=== PATIENT | female | born 1970 | race Caucasian/White ===

== ENCOUNTER → 2017-02-01 | Outpatient (CLI) | payer BC ==
--- NOTE | 2017-02-01 17:29 | RAD ---
Two-view abdomen radiographs 02/01/2017 Clinical history: Abdominal pain and diarrhea for years. 2 AP erect and 2 AP supine digital radiographs of the abdomen/pelvis were obtained. The abdominal bowel gas pattern is nonobstructive. No free air is seen. Lung bases are clear. An IUD overlies the lower pelvis. No radiopaque calculus is definitely noted. Minimal S shaped curvature of the thoracolumbar spine is seen. Impression: Nonobstructive bowel gas pattern.
== END | disposition home or self-care (01) ==
LOC: DXRADRC 11:41
PROVIDERS: ATTEND Physician Assistant
DX: R10.9 Unspecified abdominal pain (principal); R19.7 Diarrhea, unspecified
CPT/HCPCS: 74020

== ENCOUNTER → 2017-02-07 | Outpatient (CLI) | payer BC ==
[~2017-02-07] MED LIST: IOHEXOL 240 MG/ML 50ML VIAL. ONE; IOHEXOL 300 MG/ML 75 ML VIAL. IV ONE
--- NOTE | 2017-02-07 11:12 | RAD ---
Indication chronic diarrhea. Axial images through the abdomen and pelvis were obtained. Both oral and IV contrast were administered. 75 cc of Omnipaque 300 was administered intravenously. No prior CT imaging is available. There is some minimal volume loss in the right lower lobe likely reflecting atelectasis. A definite significant finding at either lung base is not seen. The liver and spleen appear unremarkable. The gallbladder appears grossly normal. No adrenal or significant renal anomalies are seen. There is a low-density 15 mm mass associated with the right kidney compatible with a cyst. The pancreas appears unremarkable. Acute finding in the abdomen is not seen. In the pelvis no acute finding is apparent. Occasional diverticula are seen associated with the large bowel most pronounced in the sigmoid colon. Active inflammation is not seen. There are low-density adnexal masses likely reflecting cysts associated with the ovaries. There is slight irregularity involving the fundus of the uterus likely reflecting a fibroid. If additional evaluation of the uterus or ovaries is warranted ultrasound could be performed. An IUD is noted. Degenerative changes are seen in the lumbar spine predominantly centered at L4-5. IMPRESSION: No acute finding seen in the abdomen or pelvis. Right renal cyst. Probable dominant cysts associated with the ovaries. Suspect fibroid uterus. Degenerative changes in the lumbar spine PQRS Compliance Statement: One or more of the following individualized dose reduction techniques were utilized for this examination: 1. Automated exposure control 2. Adjustment of the mA and/or kV according to patient size 3. Use of iterative reconstruction technique
== END | disposition home or self-care (01) ==
LOC: CT 08:47
PROVIDERS: ATTEND Physician Assistant
DX: N28.1 Cyst of kidney, acquired (principal); M47.896 Other spondylosis, lumbar region
CPT/HCPCS: 74177; Q9966; Q9967

== ENCOUNTER → 2018-09-29 | Outpatient (CLI) | payer BC ==
--- NOTE | 2018-09-29 17:34 | RAD ---
Left hand, 3 views, 09/29/2018: HISTORY: Hand pain, injury There are nondisplaced fractures of the proximal ends of the distal phalanges of the middle and ring fingers. No other fracture or dislocation is evident. IMPRESSION: Nondisplaced fractures of the distal phalanges of the middle and ring fingers. Electronically signed by: Alonso Denise MD (09/29/2018 5:31 PM) [facility]
== END | disposition home or self-care (01) ==
LOC: PMG 14:31
PROVIDERS: ATTEND Registered Nurse
DX: S62.663D Nondisplaced fracture of distal phalanx of left middle finger, subsequent encounter for fracture with routine healing (principal); S62.665D Nondisplaced fracture of distal phalanx of left ring finger, subsequent encounter for fracture with routine healing; X58.XXXD Exposure to other specified factors, subsequent encounter
CPT/HCPCS: 73130

== ENCOUNTER 2021-07-08 16:05 | Emergency (ER) | payer SELFPAY ==
[~2021-07-08] VITALS: Ht 160 cm; Wt 110.0 kg
[2021-07-08 16:21] VITALS: BP 146/105
--- NOTE | 2021-07-08 16:24 | PHYS DOC ---
General Adult EDM: Chief Complaint: LOWEREXTREMITY INJURY HPI: HPI: Patient is a 51-year-old female being seen in the ER for left knee injury. Patient reports that she was walking down some steps when the wind step fell and she fell through the stairs. Patient reports not falling completely through the steps. Patient is complaining of pain to her left knee. She states that she has been able to bear weight and ambulate. Patient denies any decreased range of motion or decreased sensation to extremity. (ANGELA ARENAS APRN) Review of Systems: Review of Systems: 14 body systems of the review of systems have been reviewed. See HPI for pertinent positive and negative responses, otherwise all other systems are negative, nonpertinent or noncontributory (ANGELA ARENAS APRN) Allergies: Allergies: Allergies Uncoded Allergies Type Severity Reaction Last Updated Verified CODIENE Allergy Unknown 02/07/17 (ANGELA ARENAS APRN) Physical Exam: PE: Constitutional: Well developed, well nourished, no acute distress, non-toxic appearance. [] HENT: Normocephalic, atraumatic Eyes: PERRLA, EOMI, conjunctiva normal, no discharge. [] Neck: Normal range of motion, no stridor Cardiovascular: Normal peripheral perfusion Lungs & Thorax: Normal work of breathing, no tachypnea Abdomen: Soft, no masses Skin: Warm, dry, no erythema, no rash. [] Back: Normal range of motion Extremities: No tenderness, no cyanosis, no clubbing, ROM intact, no edema. Left knee: Ecchymosis/erythema and swelling noted to the medial lateral aspects of patient's left knee, no knee effusion palpated, range of motion intact, neurovascularly intact Neurologic: Alert and oriented X 3, normal motor function, normal sensory function, no focal deficits noted. [] Psychologic: Affect normal, judgement normal, mood normal. [] (ANGELA ARENAS APRN) EKG: EKG: [] (ANGELA ARENAS APRN) Radiology/Procedures: Radiology/Procedures: PROCEDURE: KNEE LEFT 3V AP, oblique, and lateral views of the left knee were obtained. Indication: Knee injury with pain and bruising Comparison: none. Findings: No fracture, dislocation, significant degenerative changes. There is significant subcutaneous swelling in the medial aspect of the anterior subcutaneous tissues. Electronically signed by: Sang Cervantes MD (07/08/2021 4:32 PM) [facility] DICTATED AND SIGNED BY: SANG CERVANTES MD DATE: 07/08/211631 CC: ANGELA ARENAS APRN; OLEG KIRKLAND RENATE ~MTH0 0[] (ANGELA ARENAS APRN) Heart Score: C/O Chest Pain: No Risk Factors: Risk Factors: DM, Current or recent (<one month) smoker, HTN, HLP, family history of CAD, obesity. Risk Scores: Score 0 - 3: 2.5% MACE over next 6 weeks - Discharge Home Score 4 - 6: 20.3% MACE over next 6 weeks - Admit for Clinical Observation Score 7 - 10: 72.7% MACE over next 6 weeks - Early Invasive Strategies (ANGELA ARENAS APRN) Course & Med Decision Making: Course & Med Decision Making Pertinent Labs and Imaging studies reviewed. (See chart for details) [] Patient is a 51-year-old female being seen in the ER for left knee injury. Patient states that her left leg went through a stab. An x-ray is performed of her left knee and it showed no acute findings. Knee placed in Simon wrap. Ice pack provided. Patient advised to take Tylenol/ibuprofen for pain and apply ice. Patient advised to follow-up with her primary care provider. I discussed with patient all findings and diagnostic testing as well as the need to follow- up with PCP for further evaluation and treatment or return to the ER if any new or worsening symptoms. Strict return precautions were also discussed at length. Patient voiced understanding and agreement with the plan. Patient is hemodynamically stable at the time of disposition. (ANGELA ARENAS APRN) Course & Med Decision Making I was the Attending physician on the above date of service of this patient. This patient was evaluated, examined, treated, and dispositioned from the emergency department by the mid-level practitioner. Although I was working at the time , no assistance was requested. Electronically signed, Beverly Mcgee DO (BEVERYL MCGEE DO) Shantanu Disclaimer: Shantanu Disclaimer: This electronic medical record was generated, in whole or in part, using a voice recognition dictation system. (ANGELA ARENAS APRN) Departure Departure: Impression: Primary Impression: Knee contusion Qualified Codes: S80.02XA - Contusion of left knee, initial encounter Disposition: HOME / SELF CARE / HOMELESS Condition: GOOD Referrals: OLEG KIRKLAND APRN (PCP) Patient Instructions: Contusion Additional Instructions: You were seen in the ER today for left knee pain after he fell through a step. An x-ray was performed in the ER and it was negative for any acute fracture. You were given an Simon wrap and an ice pack. The Simon wrap and ice pack can help with swelling. Elevation of your extremity can also help with swelling. You can take Tylenol/ibuprofen for pain. Follow-up with your primary care provider tomorrow regarding your ER visit. If you develop worsening of your pain, inability to bear weight or ambulate, decreased sensation in your extremities or any new or worsening symptoms please return to the ER. EMERGENCY DEPARTMENT GENERAL DISCHARGE INSTRUCTIONS Thank you for coming to [facility] (ED) today and trusting us with you care. We trust that you had a positivie experience in our Emergency Department. If you wish to speak to the department management, you may call the director at [phone]. YOUR FOLLOW UP INSTRUCTIONS ARE FOLLOWS: 1. Do you have a private Doctor? If you do not have a private doctor, please ask for a resource list of physicians or clinics that may be able to assist you with follow up care. 2. The Emergency Physician has interpreted your x-rays. The X-Ray specialist will also review them. If there is a change in the findings, you will be notified in 48 hours when at all possible. 3. A lab test or culture has been done, your results will be reviewed and you will be notified if you need a change in treatment. ADDITIONAL INSTRUCTIONS AND INFORMATION: 1. Your care today has been supervised by a physician who is specially trained in emergency care. Many problems require more than one evaluation for a complete diagnosis and treatment. We recommend that you schedule your follow up appointment as recommended to ensure complete treatment of you illness or injury. If you are unable to obtain follow up care and continue to have a problem, or if your condition worsens, we recommend that you return to the ED. 2. We are not able to safely determine your condition over the phone nor are we able to give sound medical advice over the phone. For these safety reasons, if you call for medical advice we will ask you to come to the ED for further evaluation. 3. If you have any questions regarding these discharge instructions please call the ED at [phone]. SAFETY INFORMATION: In the interest of safety, wellness, and injury prevention; we encourage you to wear your sealbelt, if you smoke; quite smoking, and we encourage family to use a protective helmet for bicycling and other sporting events that present an increased risk for head injury. IF YOUR SYMPTOMS WORSEN OR NEW SYMPTOMS DEVELOP, OR YOU HAVE CONCERNS ABOUT YOUR CONDITION; OR IF YOUR CONDITION WORSENS WHILE YOU ARE WAITING FOR YOUR FOLLOW UP FROY OINTMENT; EITHER CONTACT YOUR PRIMARY CARE DOCTOR, THE PHYSICIAN WHOSE NAME AND NUMBER YOU WERE GIVEN, OR RETURN TO THE ED IMMEDIATELY. ANGELA ARENAS APRN Jul 08, 2021 16:24 BEVERLY MCGEE DO Jul 11, 2021 06:33
--- NOTE | 2021-07-08 16:34 | RAD ---
AP, oblique, and lateral views of the left knee were obtained. Indication: Knee injury with pain and bruising Comparison: none. Findings: No fracture, dislocation, significant degenerative changes. There is significant subcutaneous swellin g in the medial aspect of the anterior subcutaneous tissues. Electronically signed by: Sang Cervantes MD (07/08/2021 4:32 PM) [facility]
== END 2021-07-08 17:05 | disposition home or self-care (01) ==
LOC: ER 16:05
DX: S80.02XA Contusion of left knee, initial encounter (principal); Z88.5 Allergy status to narcotic agent; W10.8XXA Fall (on) (from) other stairs and steps, initial encounter; Y93.01 Activity, walking, marching and hiking; Y92.89 Other specified places as the place of occurrence of the external cause; Y99.8 Other external cause status
CPT/HCPCS: 73562; 99283

== ENCOUNTER → 2021-07-28 | Outpatient (CLI) | payer SELFPAY ==
[2021-07-08 16:21] VITALS: BP 146/105
--- NOTE | 2021-07-28 15:03 | RAD ---
EXAM: Left knee sonogram. HISTORY: Palpable lump status post fall. TECHNIQUE: Sonographic imaging of the left knee at the site of palpable concern was performed. COMPARISON: None. FINDINGS: There is a large complex fluid collection within the medial knee soft tissues at the site o f palpable concern measuring approximately 7.9 x 5.4 x 1.4 cm. The imaging appearance favors a hemato ma. This appears to be separate from the joint space. No solid lesion component is seen. IMPRESSION: Suspected hematoma within the medial left knee soft tissues at the site of palpable teresa rn measuring approximately 7.9 cm in maximum dimension. Continued clinical follow-up of palpable abno rmalities is recommended. Electronically signed by: Julia Plascencia MD (07/28/2021 3:01 PM) [id number]
== END ==
LOC: US 13:46
PROVIDERS: ATTEND Family Medicine
DX: M79.89 Other specified soft tissue disorders (principal)
CPT/HCPCS: 76881